=== PATIENT | male | born 1940 | race Caucasian/White ===

== ENCOUNTER 2018-06-07 05:58 | Inpatient (IN) | payer MEDICARE, BC ==
[2018-06-07] MEDS ORDERED: LACTATED RINGER'S 1,000 ML IV* ×2 (06:30)
[2018-06-07] MEDS: CEFAZOLIN 2 GM/50 ML (PMX) 50 ML IVPB (06:57)
[2018-06-07] MEDS ORDERED: MEPERIDINE 100 MG INJ (06:58)
[2018-06-07] MEDS ORDERED: GLYCOPYRROLATE 0.4 MG INJ ×3 (06:58→10:09)
[2018-06-07] MEDS ORDERED: SUCCINYLCHOLINE CHLORIDE 100 MG/5 ML SYG IV (06:58)
[2018-06-07] MEDS ORDERED: ROCURONIUM 50 MG INJ ×2 (06:58→07:00)
[2018-06-07] MEDS ORDERED: LIDOCAINE 2% (SDV) 5 ML INJ (06:58)
[2018-06-07] MEDS ORDERED: PROPOFOL 20 ML (06:58)
[2018-06-07] MEDS ORDERED: NEOSTIGMINE 3 MG/3 ML SYRINGE ×2 (06:58→10:09)
[2018-06-07] MEDS ORDERED: THROMBIN 5000 UNIT VIAL (07:06)
[2018-06-07] MEDS ORDERED: GELATIN SIZE 100 SPONGE (07:07)
[2018-06-07] MEDS: BUPIVACAINE 0.25% (MPF) 30 ML INJ (08:40)
[2018-06-07] MEDS: POLYMYXIN/BACITRACIN 1L IRRIG (08:40)
[2018-06-07] MEDS ORDERED: ONDANSETRON 4 MG INJ (10:11)
[2018-06-07] MEDS ORDERED: ONDANSETRON 4 MG INJ IV ×2 (11:00→11:30)
[2018-06-07] MEDS ORDERED: PROCHLORPERAZINE 10 MG TAB PO (11:00)
[2018-06-07] MEDS ORDERED: DIAZEPAM 5 MG TAB PO (11:00)
[2018-06-07] MEDS ORDERED: DIPHENHYDRAMINE 50 MG CAP PO (11:00)
[2018-06-07] MEDS ORDERED: DIAZEPAM 5 MG/ML SYG IM (11:00)
[2018-06-07] MEDS ORDERED: NACL 0.9% 3 ML SYG IV (11:00)
[2018-06-07] MEDS ORDERED: CEPASTAT LOZENGE MT (11:00)
[2018-06-07] MEDS ORDERED: ZOLPIDEM 5 MG TAB PO (11:00)
[2018-06-07] MEDS ORDERED: TRIMETHOBENZAMIDE 100 MG/ML VIAL IM (11:00)
[2018-06-07] MEDS ORDERED: BETHANECHOL 25 MG TAB PO (11:00)
[2018-06-07] MEDS ORDERED: HYDROCODONE/APAP (5/325) TAB PO ×2 (11:00)
[2018-06-07] MEDS ORDERED: NALOXONE (0.4 MG/ML) INJ IV (11:00)
[2018-06-07] MEDS ORDERED: HYDROmorphONE 0.2 MG/ML PCA IV (11:00)
[2018-06-07] MEDS ORDERED: HYDROmorphONE 0.2 MG/ML PCA (11:19)
[2018-06-07] MEDS ORDERED: EPHEDrine SULFATE 50 MG/5 ML SYG IV (11:30)
[2018-06-07] MEDS ORDERED: HYDROmorphONE 1 MG/5 ML IV SYRINGE IV ×2 (11:30)
[2018-06-07] MEDS ORDERED: MIDAZOLAM 1 MG/ML 2 ML INJ IV (11:30)
[2018-06-07] MEDS ORDERED: FENTAnyl 50 MCG/ML VIAL IV ×3 (11:30)
[2018-06-07] MEDS ORDERED: LABETALOL HCL 20MG INJ IV (11:30)
[2018-06-07] MEDS ORDERED: METOCLOPRAMIDE 10 MG INJ IV (11:30)
[2018-06-07] MEDS ORDERED: hydrALAzine 20 MG INJ IV (11:30)
[2018-06-07] MEDS ORDERED: DIPHENHYDRAMINE 50 MG INJ IV (11:30)
[2018-06-07] MEDS: MEPERIDINE 25 MG INJ IV (11:31)
[2018-06-07] MEDS: HYDROmorphONE 1 MG/5 ML IV SYRINGE IV ×2 (11:44→11:59)
[2018-06-07] MEDS: CEFAZOLIN 1 GM/50 ML (PMX) 50 ML IVPB ×3 (12:05→23:57)
[2018-06-07] MEDS ORDERED: TADALAFIL PO (13:00)
[2018-06-07] MEDS: DEXTROSE 5%-0.45% NACL 1,000 ML IV ×2 (16:12→20:16)
[2018-06-07] MEDS: PANTOPRAZOLE (EC) 40 MG TAB PO (18:28)
[2018-06-07] MEDS: DOCUSATE SODIUM 100 MG CAP PO (20:29)
[2018-06-07] MEDS: ATORVASTATIN 20 MG TAB PO (20:29)
[2018-06-07] MEDS: RANITIDINE 150 MG TAB PO (20:29)
[2018-06-07] MEDS ORDERED: GLUCOSAMINE SULFATE 1500 MG PO (21:00)
[2018-06-08] MEDS: DEXTROSE 5%-0.45% NACL 1,000 ML IV (03:22)
[2018-06-08 05:15] LABS: HEMATOCRIT 35.9 % (42.0-52.0); HEMOGLOBIN 12.1 g/dl (14.0-18.0)
[2018-06-08 05:32] LABS: ANION GAP 9 (8-16); BLOOD UREA NITROGEN 11 mg/dl (7-20); CALCIUM 8.3 mg/dl (8.4-10.2); CARBON DIOXIDE 27 mmol/L (21-31); CHLORIDE 106 mmol/L (97-110); CREATININE 0.74 mg/dl (0.61-1.24); GLUCOSE 120 mg/dl (70-220); POTASSIUM 3.7 mmol/L (3.5-5.1); SODIUM 138 mmol/L (135-144)
[2018-06-08] MEDS: PANTOPRAZOLE (EC) 40 MG TAB PO ×2 (05:46→18:01)
[2018-06-08] MEDS: CEFAZOLIN 1 GM/50 ML (PMX) 50 ML IVPB (05:46)
[2018-06-08] MEDS ORDERED: HYDROCODONE/APAP (5/325) TAB PO (08:30)
[2018-06-08] MEDS: BETHANECHOL 25 MG TAB PO (08:52)
[2018-06-08] MEDS: DOCUSATE SODIUM 100 MG CAP PO ×2 (08:52→21:03)
[2018-06-08] MEDS: FERROUS SULFATE (EC) 325 MG TAB PO ×3 (08:52→21:03)
[2018-06-08] MEDS: TAMSULOSIN (SR) 0.4 MG CAP PO (08:52)
[2018-06-08] MEDS: ASCORBIC ACID 500 MG TAB PO ×2 (08:52→21:03)
[2018-06-08] MEDS: RANITIDINE 150 MG TAB PO ×2 (08:52→21:03)
[2018-06-08] MEDS: SOLIFENACIN 5 MG TAB PO (08:52)
[2018-06-08] MEDS ORDERED: RESVERATROL 500 MG PO (09:00)
[2018-06-08] MEDS ORDERED: DOCUSATE SODIUM 100 MG CAP PO (09:00)
[2018-06-08 09:40] LABS: ADD UMIC YES; UR ASCORBIC ACID NEGATIVE (NEGATIVE); UR BILIRUBIN (Dip) NEGATIVE (NEGATIVE); UR BLOOD (Dip) 1+ mg/dL (NEGATIVE); UR CLARITY CLEAR (CLEAR); UR COLOR STRAW (YELLOW); UR GLUCOSE (Dip) NEGATIVE (NEGATIVE); UR KETONES (Dip) NEGATIVE (NEGATIVE); UR LEUKOCYTE ESTERASE (Dip) NEGATIVE Leu/ul (NEGATIVE); UR NITRITE (Dip) NEGATIVE (NEGATIVE); UR RBC 2 /HPF (0-5); UR SPECIFIC GRAVITY (Dip) 1.006 (1.003-1.030); UR TOTAL PROTEIN (Dip) NEGATIVE (NEGATIVE); UR UROBILINOGEN (Dip) NEGATIVE (NEGATIVE); UR WBC 0 /HPF (0-5)
[2018-06-08] MEDS: FLUTICASONE 0.05% 16 GM NAS SPRAY NASAL (10:53)
[2018-06-08] MEDS: HYDROCODONE/APAP (5/325) TAB PO (10:57)
[2018-06-08] MEDS: ATORVASTATIN 20 MG TAB PO (21:03)
[2018-06-09] MEDS: HYDROCODONE/APAP (5/325) TAB PO ×2 (00:22→18:05)
[2018-06-09] MEDS: PANTOPRAZOLE (EC) 40 MG TAB PO ×2 (06:17→18:00)
[2018-06-09] MEDS: FLUTICASONE 0.05% 16 GM NAS SPRAY NASAL (08:35)
[2018-06-09] MEDS: SOLIFENACIN 5 MG TAB PO (08:36)
[2018-06-09] MEDS: ASCORBIC ACID 500 MG TAB PO ×2 (08:36→21:08)
[2018-06-09] MEDS: RANITIDINE 150 MG TAB PO ×2 (08:36→21:08)
[2018-06-09] MEDS: TAMSULOSIN (SR) 0.4 MG CAP PO (08:37)
[2018-06-09] MEDS: FERROUS SULFATE (EC) 325 MG TAB PO ×3 (08:38→21:08)
[2018-06-09] MEDS: DOCUSATE SODIUM 100 MG CAP PO ×2 (08:38→21:08)
[2018-06-09] MEDS: ATORVASTATIN 20 MG TAB PO (21:08)
[2018-06-10] MEDS: ACETAMINOPHEN 325 MG TAB PO ×4 (00:10→21:22)
[2018-06-10] MEDS: PANTOPRAZOLE (EC) 40 MG TAB PO ×2 (05:15→18:59)
[2018-06-10] MEDS: FLUTICASONE 0.05% 16 GM NAS SPRAY NASAL (09:00)
[2018-06-10] MEDS: SOLIFENACIN 5 MG TAB PO (09:13)
[2018-06-10] MEDS: RANITIDINE 150 MG TAB PO ×2 (09:14→20:52)
[2018-06-10] MEDS: FERROUS SULFATE (EC) 325 MG TAB PO ×3 (09:14→20:52)
[2018-06-10] MEDS: DOCUSATE SODIUM 100 MG CAP PO ×2 (09:14→20:51)
[2018-06-10] MEDS: ASCORBIC ACID 500 MG TAB PO ×2 (09:14→20:51)
[2018-06-10] MEDS: TAMSULOSIN (SR) 0.4 MG CAP PO (09:14)
[2018-06-10] MEDS: AL HYDROX/MG HYDROX/SIMETH 30 ML CUP PO (11:11)
[2018-06-10] MEDS: HYDROCODONE/APAP (5/325) TAB PO (11:30)
[2018-06-10] MEDS: ATORVASTATIN 20 MG TAB PO (20:52)
[2018-06-11] MEDS: ACETAMINOPHEN 325 MG TAB PO ×4 (01:48→17:53)
[2018-06-11] MEDS: PANTOPRAZOLE (EC) 40 MG TAB PO ×2 (05:38→17:54)
[2018-06-11] MEDS: RANITIDINE 150 MG TAB PO (08:31)
[2018-06-11] MEDS: TAMSULOSIN (SR) 0.4 MG CAP PO (08:31)
[2018-06-11] MEDS: FERROUS SULFATE (EC) 325 MG TAB PO ×2 (08:31→13:30)
[2018-06-11] MEDS: SOLIFENACIN 5 MG TAB PO (08:31)
[2018-06-11] MEDS: DOCUSATE SODIUM 100 MG CAP PO (08:31)
[2018-06-11] MEDS: ASCORBIC ACID 500 MG TAB PO (08:32)
[2018-06-11] MEDS ORDERED: NA PHOSPHATE/BIPHOS 133 ML ENEMA PR ×2 (10:30)
[2018-06-11] MEDS: FLUTICASONE 0.05% 16 GM NAS SPRAY NASAL (10:50)
[2018-06-11] MEDS: BISACODYL 10 MG SUPP PR (10:50)
[2018-06-11] MEDS: AL HYDROX/MG HYDROX/SIMETH 30 ML CUP PO (11:01)
== END 2018-06-11 18:55 | DRG 516 ==
LOC: REC 05:58 → MS1 06-08 18:20 → ICU 14:30
PROC: 01NB0ZZ Release Lumbar Nerve, Open Approach (ICD-10-PCS; principal; 2018-06-07 07:00)
PROC: 4A11X4G Monitoring of Peripheral Nervous Electrical Activity, Intraoperative, External Approach (ICD-10-PCS; 2018-06-07 07:00)
DX: M48.061 Spinal stenosis, lumbar region without neurogenic claudication (principal); M54.16 Radiculopathy, lumbar region; M54.42 Lumbago with sciatica, left side; R25.2 Cramp and spasm; E66.01 Morbid (severe) obesity due to excess calories; M53.86 Other specified dorsopathies, lumbar region; K21.9 Gastro-esophageal reflux disease without esophagitis; Z68.39 Body mass index [BMI] 39.0-39.9, adult; E78.5 Hyperlipidemia, unspecified; G47.33 Obstructive sleep apnea (adult) (pediatric); N40.1 Benign prostatic hyperplasia with lower urinary tract symptoms; N13.8 Other obstructive and reflux uropathy
CPT/HCPCS: 72020; 80048; 81001; 85014; 85018; 86850; 86900; 86901; 86920; 87086; 88304; 88311; 97110; 97116; 97162; 97165; 97530; 97535

== ENCOUNTER 2018-06-11 19:59 | Inpatient (IN) | payer MEDICARE, BC ==
[2018-06-11] MEDS ORDERED: HYDROCODONE/APAP (5/325) TAB PO (21:00)
[2018-06-11] MEDS ORDERED: ONDANSETRON 4 MG INJ IV (21:00)
[2018-06-11] MEDS ORDERED: PROCHLORPERAZINE 10 MG TAB PO (21:00)
[2018-06-11] MEDS ORDERED: NACL 0.9% 3 ML SYG IV (21:00)
[2018-06-11] MEDS ORDERED: TRIMETHOBENZAMIDE 100 MG/ML VIAL IM (21:00)
[2018-06-11] MEDS ORDERED: BETHANECHOL 25 MG TAB PO (21:00)
[2018-06-11] MEDS ORDERED: CEPASTAT LOZENGE MT (21:00)
[2018-06-11] MEDS ORDERED: AL HYDROX/MG HYDROX/SIMETH 30 ML CUP PO (21:00)
[2018-06-11] MEDS: DOCUSATE SODIUM 100 MG CAP PO (21:12)
[2018-06-11] MEDS: FERROUS SULFATE (EC) 325 MG TAB PO (21:13)
[2018-06-11] MEDS: ASCORBIC ACID 500 MG TAB PO (21:13)
[2018-06-11] MEDS: ATORVASTATIN 20 MG TAB PO (21:13)
[2018-06-11] MEDS: RANITIDINE 150 MG TAB PO (21:13)
[2018-06-11 22:27] LABS: ADD UMIC NO; UR ASCORBIC ACID 40 mg/dL (NEGATIVE); UR BILIRUBIN (Dip) NEGATIVE (NEGATIVE); UR BLOOD (Dip) NEGATIVE (NEGATIVE); UR CLARITY CLEAR (CLEAR); UR COLOR YELLOW (YELLOW); UR GLUCOSE (Dip) NEGATIVE (NEGATIVE); UR KETONES (Dip) NEGATIVE (NEGATIVE); UR LEUKOCYTE ESTERASE (Dip) NEGATIVE Leu/ul (NEGATIVE); UR NITRITE (Dip) NEGATIVE (NEGATIVE); UR SPECIFIC GRAVITY (Dip) 1.021 (1.003-1.030); UR TOTAL PROTEIN (Dip) NEGATIVE (NEGATIVE); UR UROBILINOGEN (Dip) 1+ mg/dL (NEGATIVE)
[2018-06-12 06:48] LABS: ADD MAN DIFF? NO
[2018-06-12 06:50] LABS: WHITE BLOOD COUNT 8.6 10^3/ul (4.8-10.8)
[2018-06-12 06:50] LABS: BASOPHILS % 0.4 % (0.0-2.0); EOSINOPHILS # 0.2 10^3/ul (0.0-0.5); EOSINOPHILS % 1.8 % (0.0-7.0); HEMATOCRIT 37.8 % (42.0-52.0); HEMOGLOBIN 12.8 g/dl (14.0-18.0); LYMPHOCYTES # 1.2 10^3/ul (0.8-2.9); MEAN CORPUSCULAR HEMOGLOBIN 31.7 pg (29.0-33.0); MEAN CORPUSCULAR HGB CONC 33.9 g/dl (32.0-37.0); MEAN CORPUSCULAR VOLUME 93.6 fl (82.0-101.0); MEAN PLATELET VOLUME 11.9 fl (7.4-10.4); MONOCYTE # 1.1 10^3/ul (0.3-0.9); MONOCYTES % 12.7 % (0.0-11.0); NEUTROPHIL # 6.1 10^3/ul (1.6-7.5); NEUTROPHILS % 70.7 % (39.0-77.0); PLATELET COUNT 194 10^3/UL (140-415); RED BLOOD COUNT 4.04 10^6/ul (4.70-6.10); RED CELL DISTRIBUTION WIDTH 14.6 % (11.5-14.5)
[2018-06-12] MEDS: PANTOPRAZOLE (EC) 40 MG TAB PO ×2 (07:02→18:22)
[2018-06-12 07:10] LABS: ALANINE AMINOTRANSFERASE 292 IU/L (13-69); ALBUMIN 3.1 g/dl (3.3-4.9); ALBUMIN/GLOBULIN RATIO 1.14; ALKALINE PHOSPHATASE 69 IU/L (42-121); ANION GAP 10 (8-16); ASPARTATE AMINO TRANSFERASE 234 IU/L (15-46); BILIRUBIN,INDIRECT 0.8 mg/dl (0-1.1); BILIRUBIN,TOTAL 0.8 mg/dl (0.2-1.3); BLOOD UREA NITROGEN 18 mg/dl (7-20); CALCIUM 8.5 mg/dl (8.4-10.2); CARBON DIOXIDE 27 mmol/L (21-31); CHLORIDE 106 mmol/L (97-110); CREATININE 0.77 mg/dl (0.61-1.24); GLUCOSE 114 mg/dl (70-220); POTASSIUM 3.4 mmol/L (3.5-5.1); SODIUM 140 mmol/L (135-144); TOTAL PROTEIN 5.8 g/dl (6.1-8.1)
[2018-06-12] MEDS: ACETAMINOPHEN 325 MG TAB PO ×3 (07:55→19:26)
[2018-06-12] MEDS: FERROUS SULFATE (EC) 325 MG TAB PO ×3 (10:42→21:19)
[2018-06-12] MEDS: RANITIDINE 150 MG TAB PO ×2 (10:42→21:19)
[2018-06-12] MEDS: DOCUSATE SODIUM 100 MG CAP PO ×2 (10:42→21:19)
[2018-06-12] MEDS: ASCORBIC ACID 500 MG TAB PO ×2 (10:42→21:19)
[2018-06-12] MEDS: FLUTICASONE 0.05% 16 GM NAS SPRAY NASAL (10:42)
[2018-06-12] MEDS: SOLIFENACIN 5 MG TAB PO (10:42)
[2018-06-12] MEDS: TAMSULOSIN (SR) 0.4 MG CAP PO (10:42)
[2018-06-12] MEDS: POTASSIUM CHLORIDE (SR) 20 MEQ TAB PO (10:43)
[2018-06-12] MEDS: BACLOFEN 10 MG TAB PO ×2 (14:41→21:19)
[2018-06-12] MEDS: SENNA TAB PO (21:19)
[2018-06-12] MEDS: ATORVASTATIN 20 MG TAB PO (21:19)
[2018-06-13] MEDS: PANTOPRAZOLE (EC) 40 MG TAB PO ×2 (06:35→17:45)
[2018-06-13 07:10] LABS: ADD MAN DIFF? NO; BASOPHILS % 0.4 % (0.0-2.0); EOSINOPHILS # 0.3 10^3/ul (0.0-0.5); EOSINOPHILS % 2.9 % (0.0-7.0); HEMOGLOBIN 12.8 g/dl (14.0-18.0); LYMPHOCYTES # 1.4 10^3/ul (0.8-2.9); LYMPHOCYTES % 16.4 % (15.0-51.0); MEAN CORPUSCULAR HEMOGLOBIN 31.3 pg (29.0-33.0); MEAN CORPUSCULAR HGB CONC 32.8 g/dl (32.0-37.0); MEAN CORPUSCULAR VOLUME 95.4 fl (82.0-101.0); MEAN PLATELET VOLUME 12.2 fl (7.4-10.4); MONOCYTES % 11.9 % (0.0-11.0); NEUTROPHIL # 5.8 10^3/ul (1.6-7.5); NEUTROPHILS % 67.8 % (39.0-77.0); PLATELET COUNT 185 10^3/UL (140-415); RED BLOOD COUNT 4.09 10^6/ul (4.70-6.10); RED CELL DISTRIBUTION WIDTH 14.6 % (11.5-14.5)
[2018-06-13 07:10] LABS: WHITE BLOOD COUNT 8.6 10^3/ul (4.8-10.8)
[2018-06-13 07:14] LABS: HAAIG REFLEX REFLEX FILED
[2018-06-13 08:07] LABS: ALANINE AMINOTRANSFERASE 314 IU/L (13-69); ALKALINE PHOSPHATASE 68 IU/L (42-121); ANION GAP 11 (8-16); ASPARTATE AMINO TRANSFERASE 157 IU/L (15-46); BILIRUBIN,INDIRECT 0.6 mg/dl (0-1.1); BILIRUBIN,TOTAL 0.6 mg/dl (0.2-1.3); BLOOD UREA NITROGEN 18 mg/dl (7-20); CALCIUM 8.8 mg/dl (8.4-10.2); CARBON DIOXIDE 24 mmol/L (21-31); CHLORIDE 108 mmol/L (97-110); GLUCOSE 107 mg/dl (70-220); SODIUM 139 mmol/L (135-144)
[2018-06-13 08:22] LABS: HEPATITIS B SURFACE ANTIGEN NEGATIVE (NEGATIVE)
[2018-06-13 08:40] LABS: HEPATITIS B CORE ANTIBODY NEGATIVE (NEGATIVE); HEPATITIS C VIRAL ANTIBODY NEGATIVE (NEGATIVE)
[2018-06-13] MEDS: ASCORBIC ACID 500 MG TAB PO ×2 (08:50→21:07)
[2018-06-13] MEDS: TAMSULOSIN (SR) 0.4 MG CAP PO (08:50)
[2018-06-13] MEDS: RANITIDINE 150 MG TAB PO ×2 (08:50→21:07)
[2018-06-13] MEDS: ACETAMINOPHEN 325 MG TAB PO ×2 (08:50→15:28)
[2018-06-13] MEDS: FLUTICASONE 0.05% 16 GM NAS SPRAY NASAL (08:50)
[2018-06-13] MEDS: BACLOFEN 10 MG TAB PO ×2 (08:50→21:07)
[2018-06-13] MEDS: FERROUS SULFATE (EC) 325 MG TAB PO ×3 (08:50→21:07)
[2018-06-13] MEDS: DOCUSATE SODIUM 100 MG CAP PO ×2 (08:50→21:07)
[2018-06-13] MEDS: SOLIFENACIN 5 MG TAB PO (08:50)
[2018-06-13] MEDS: SENNA TAB PO (21:00)
[2018-06-13] MEDS: NITROFURANTOIN (SR) 100 MG CAP PO (21:07)
[2018-06-13] MEDS: ATORVASTATIN 20 MG TAB PO (21:07)
[2018-06-14] MEDS: PANTOPRAZOLE (EC) 40 MG TAB PO ×2 (06:06→17:49)
[2018-06-14] MEDS: ACETAMINOPHEN 325 MG TAB PO ×2 (07:56→20:58)
[2018-06-14 07:59] LABS: ALANINE AMINOTRANSFERASE 241 IU/L (13-69); ALBUMIN 3.1 g/dl (3.3-4.9); ALBUMIN/GLOBULIN RATIO 1.03; ALKALINE PHOSPHATASE 75 IU/L (42-121); ANION GAP 10 (8-16); ASPARTATE AMINO TRANSFERASE 86 IU/L (15-46); BILIRUBIN,INDIRECT 0.6 mg/dl (0-1.1); BILIRUBIN,TOTAL 0.6 mg/dl (0.2-1.3); BLOOD UREA NITROGEN 17 mg/dl (7-20); CALCIUM 8.9 mg/dl (8.4-10.2); CARBON DIOXIDE 26 mmol/L (21-31); CHLORIDE 107 mmol/L (97-110); CREATININE 0.83 mg/dl (0.61-1.24); GLUCOSE 102 mg/dl (70-220); SODIUM 139 mmol/L (135-144); TOTAL PROTEIN 6.1 g/dl (6.1-8.1)
[2018-06-14] MEDS: DOCUSATE SODIUM 100 MG CAP PO ×3 (09:00→20:55)
[2018-06-14] MEDS: FLUTICASONE 0.05% 16 GM NAS SPRAY NASAL ×2 (09:00→11:50)
[2018-06-14] MEDS: NITROFURANTOIN (SR) 100 MG CAP PO ×2 (11:51→20:55)
[2018-06-14] MEDS: ASCORBIC ACID 500 MG TAB PO ×2 (11:51→20:55)
[2018-06-14] MEDS: BACLOFEN 10 MG TAB PO ×2 (11:51→20:55)
[2018-06-14] MEDS: FERROUS SULFATE (EC) 325 MG TAB PO ×3 (11:51→20:55)
[2018-06-14] MEDS: TAMSULOSIN (SR) 0.4 MG CAP PO (11:51)
[2018-06-14] MEDS: SOLIFENACIN 5 MG TAB PO (11:56)
[2018-06-14] MEDS: RANITIDINE 150 MG TAB PO ×2 (11:56→20:54)
[2018-06-14] MEDS: SENNA TAB PO (20:55)
[2018-06-14] MEDS: ATORVASTATIN 20 MG TAB PO (20:55)
[2018-06-15] MEDS: PANTOPRAZOLE (EC) 40 MG TAB PO ×2 (06:22→18:16)
[2018-06-15] MEDS: FLUTICASONE 0.05% 16 GM NAS SPRAY NASAL (09:00)
[2018-06-15] MEDS: ACETAMINOPHEN 325 MG TAB PO ×2 (09:36→20:57)
[2018-06-15] MEDS: BACLOFEN 10 MG TAB PO ×2 (09:36→20:56)
[2018-06-15] MEDS: DOCUSATE SODIUM 100 MG CAP PO ×2 (09:36→20:57)
[2018-06-15] MEDS: TAMSULOSIN (SR) 0.4 MG CAP PO (09:36)
[2018-06-15] MEDS: SOLIFENACIN 5 MG TAB PO (09:37)
[2018-06-15] MEDS: ASCORBIC ACID 500 MG TAB PO ×2 (09:37→20:57)
[2018-06-15] MEDS: RANITIDINE 150 MG TAB PO ×2 (09:37→20:57)
[2018-06-15] MEDS: FERROUS SULFATE (EC) 325 MG TAB PO ×3 (09:37→20:58)
[2018-06-15] MEDS: NITROFURANTOIN (SR) 100 MG CAP PO ×2 (09:37→20:57)
[2018-06-15] MEDS: MAGNESIUM HYDROXIDE 30ML CUP PO (10:06)
[2018-06-15] MEDS: CIPROFLOXACIN 500 MG TAB PO (19:34)
[2018-06-15] MEDS: ATORVASTATIN 20 MG TAB PO (20:57)
[2018-06-15] MEDS: SENNA TAB PO (20:57)
[2018-06-16] MEDS: PANTOPRAZOLE (EC) 40 MG TAB PO ×2 (06:49→17:40)
[2018-06-16] MEDS: CIPROFLOXACIN 500 MG TAB PO ×2 (06:49→17:40)
[2018-06-16 07:18] LABS: ALANINE AMINOTRANSFERASE 137 IU/L (13-69); ALBUMIN 3.1 g/dl (3.3-4.9); ALKALINE PHOSPHATASE 81 IU/L (42-121); ASPARTATE AMINO TRANSFERASE 35 IU/L (15-46); BILIRUBIN,INDIRECT 0.8 mg/dl (0-1.1); BILIRUBIN,TOTAL 0.8 mg/dl (0.2-1.3); TOTAL PROTEIN 5.5 g/dl (6.1-8.1)
[2018-06-16] MEDS: SOLIFENACIN 5 MG TAB PO (10:18)
[2018-06-16] MEDS: FERROUS SULFATE (EC) 325 MG TAB PO ×3 (10:18→20:26)
[2018-06-16] MEDS: RANITIDINE 150 MG TAB PO ×2 (10:18→20:27)
[2018-06-16] MEDS: DOCUSATE SODIUM 100 MG CAP PO ×2 (10:18→20:26)
[2018-06-16] MEDS: NITROFURANTOIN (SR) 100 MG CAP PO (10:18)
[2018-06-16] MEDS: TAMSULOSIN (SR) 0.4 MG CAP PO (10:19)
[2018-06-16] MEDS: BACLOFEN 10 MG TAB PO ×2 (10:19→20:26)
[2018-06-16] MEDS: ASCORBIC ACID 500 MG TAB PO ×2 (10:21→20:26)
[2018-06-16] MEDS: FLUTICASONE 0.05% 16 GM NAS SPRAY NASAL (10:25)
[2018-06-16] MEDS: LACTULOSE 30ML CUP PO (14:27)
[2018-06-16] MEDS: SENNA TAB PO (20:26)
[2018-06-16] MEDS: ATORVASTATIN 20 MG TAB PO (20:26)
[2018-06-16] MEDS: MAGNESIUM HYDROXIDE 30ML CUP PO (20:58)
[2018-06-17] MEDS: CIPROFLOXACIN 500 MG TAB PO ×2 (06:19→18:24)
[2018-06-17] MEDS: PANTOPRAZOLE (EC) 40 MG TAB PO ×2 (06:19→18:24)
[2018-06-17] MEDS: BACLOFEN 10 MG TAB PO ×2 (08:50→20:51)
[2018-06-17] MEDS: DOCUSATE SODIUM 100 MG CAP PO ×2 (08:50→20:53)
[2018-06-17] MEDS: SOLIFENACIN 5 MG TAB PO (08:50)
[2018-06-17] MEDS: FLUTICASONE 0.05% 16 GM NAS SPRAY NASAL ×2 (08:50→20:50)
[2018-06-17] MEDS: FERROUS SULFATE (EC) 325 MG TAB PO ×3 (08:50→20:51)
[2018-06-17] MEDS: TAMSULOSIN (SR) 0.4 MG CAP PO (08:51)
[2018-06-17] MEDS: ASCORBIC ACID 500 MG TAB PO ×2 (08:51→20:51)
[2018-06-17] MEDS: RANITIDINE 150 MG TAB PO ×2 (08:51→20:51)
[2018-06-17] MEDS: BISACODYL 10 MG SUPP PR (08:51)
[2018-06-17] MEDS: ATORVASTATIN 20 MG TAB PO (20:51)
[2018-06-17] MEDS: SENNA TAB PO (20:53)
[2018-06-18] MEDS: CIPROFLOXACIN 500 MG TAB PO ×2 (06:33→17:44)
[2018-06-18] MEDS: PANTOPRAZOLE (EC) 40 MG TAB PO ×2 (06:33→17:46)
[2018-06-18] MEDS: DOCUSATE SODIUM 100 MG CAP PO ×2 (08:52→20:40)
[2018-06-18] MEDS: FERROUS SULFATE (EC) 325 MG TAB PO ×3 (08:52→20:39)
[2018-06-18] MEDS: RANITIDINE 150 MG TAB PO ×2 (08:52→20:40)
[2018-06-18] MEDS: SOLIFENACIN 5 MG TAB PO (08:52)
[2018-06-18] MEDS: TAMSULOSIN (SR) 0.4 MG CAP PO (08:52)
[2018-06-18] MEDS: BACLOFEN 10 MG TAB PO ×2 (08:52→20:39)
[2018-06-18] MEDS: ASCORBIC ACID 500 MG TAB PO ×2 (08:52→20:39)
[2018-06-18] MEDS: ATORVASTATIN 20 MG TAB PO (20:39)
[2018-06-18] MEDS: FLUTICASONE 0.05% 16 GM NAS SPRAY NASAL (20:40)
[2018-06-18] MEDS: SENNA TAB PO (20:40)
[2018-06-19] MEDS: CIPROFLOXACIN 500 MG TAB PO ×2 (06:04→17:22)
[2018-06-19] MEDS: PANTOPRAZOLE (EC) 40 MG TAB PO ×2 (06:04→17:22)
[2018-06-19] MEDS: RANITIDINE 150 MG TAB PO ×2 (08:27→21:30)
[2018-06-19] MEDS: FERROUS SULFATE (EC) 325 MG TAB PO ×3 (08:27→21:30)
[2018-06-19] MEDS: BACLOFEN 10 MG TAB PO ×2 (08:27→21:30)
[2018-06-19] MEDS: SOLIFENACIN 5 MG TAB PO (08:27)
[2018-06-19] MEDS: TAMSULOSIN (SR) 0.4 MG CAP PO (08:27)
[2018-06-19] MEDS: ASCORBIC ACID 500 MG TAB PO ×2 (08:27→21:30)
[2018-06-19] MEDS: DOCUSATE SODIUM 100 MG CAP PO ×2 (08:28→21:30)
[2018-06-19] MEDS: FLUTICASONE 0.05% 16 GM NAS SPRAY NASAL (21:30)
[2018-06-19] MEDS: ATORVASTATIN 20 MG TAB PO (21:30)
[2018-06-19] MEDS: SENNA TAB PO (21:37)
[2018-06-20] MEDS: CIPROFLOXACIN 500 MG TAB PO ×2 (06:30→17:25)
[2018-06-20] MEDS: MAGNESIUM HYDROXIDE 30ML CUP PO (06:30)
[2018-06-20] MEDS: PANTOPRAZOLE (EC) 40 MG TAB PO ×2 (06:30→17:25)
[2018-06-20] MEDS: SOLIFENACIN 5 MG TAB PO (08:53)
[2018-06-20] MEDS: ASCORBIC ACID 500 MG TAB PO ×2 (08:53→21:05)
[2018-06-20] MEDS: RANITIDINE 150 MG TAB PO ×2 (08:53→21:05)
[2018-06-20] MEDS: BACLOFEN 10 MG TAB PO ×2 (08:54→21:05)
[2018-06-20] MEDS: TAMSULOSIN (SR) 0.4 MG CAP PO (08:54)
[2018-06-20] MEDS: FERROUS SULFATE (EC) 325 MG TAB PO ×3 (08:54→21:05)
[2018-06-20] MEDS: DOCUSATE SODIUM 100 MG CAP PO ×2 (08:54→21:05)
[2018-06-20] MEDS: LACTULOSE 30ML CUP PO (12:12)
[2018-06-20] MEDS: SENNA TAB PO (21:00)
[2018-06-20] MEDS: ATORVASTATIN 20 MG TAB PO (21:05)
[2018-06-20] MEDS: FLUTICASONE 0.05% 16 GM NAS SPRAY NASAL (21:05)
[2018-06-20] MEDS: DIPHENHYDRAMINE 50 MG CAP PO (21:08)
[2018-06-21] MEDS: CIPROFLOXACIN 500 MG TAB PO ×2 (06:04→17:42)
[2018-06-21] MEDS: PANTOPRAZOLE (EC) 40 MG TAB PO ×2 (06:04→17:42)
[2018-06-21 08:02] LABS: ALANINE AMINOTRANSFERASE 56 IU/L (13-69); ALBUMIN 3.1 g/dl (3.3-4.9); ALKALINE PHOSPHATASE 88 IU/L (42-121); ASPARTATE AMINO TRANSFERASE 22 IU/L (15-46); BILIRUBIN,INDIRECT 0.5 mg/dl (0-1.1); BILIRUBIN,TOTAL 0.5 mg/dl (0.2-1.3)
[2018-06-21] MEDS: DOCUSATE SODIUM 100 MG CAP PO ×2 (08:20→21:11)
[2018-06-21] MEDS: BACLOFEN 10 MG TAB PO ×2 (08:20→21:11)
[2018-06-21] MEDS: ASCORBIC ACID 500 MG TAB PO ×2 (08:20→21:12)
[2018-06-21] MEDS: FERROUS SULFATE (EC) 325 MG TAB PO ×3 (08:20→21:11)
[2018-06-21] MEDS: RANITIDINE 150 MG TAB PO ×2 (08:20→21:11)
[2018-06-21] MEDS: SOLIFENACIN 5 MG TAB PO (08:21)
[2018-06-21] MEDS: TAMSULOSIN (SR) 0.4 MG CAP PO (08:21)
[2018-06-21] MEDS: SENNA TAB PO (21:00)
[2018-06-21] MEDS: ATORVASTATIN 20 MG TAB PO (21:11)
[2018-06-21] MEDS: FLUTICASONE 0.05% 16 GM NAS SPRAY NASAL (21:12)
[2018-06-22] MEDS: PANTOPRAZOLE (EC) 40 MG TAB PO ×2 (06:10→17:34)
[2018-06-22] MEDS: CIPROFLOXACIN 500 MG TAB PO ×2 (06:10→17:34)
[2018-06-22] MEDS: BACLOFEN 10 MG TAB PO ×2 (08:32→21:33)
[2018-06-22] MEDS: FERROUS SULFATE (EC) 325 MG TAB PO ×3 (08:32→21:33)
[2018-06-22] MEDS: ASCORBIC ACID 500 MG TAB PO ×2 (08:32→21:33)
[2018-06-22] MEDS: SOLIFENACIN 5 MG TAB PO (08:32)
[2018-06-22] MEDS: DOCUSATE SODIUM 100 MG CAP PO ×2 (08:32→21:00)
[2018-06-22] MEDS: TAMSULOSIN (SR) 0.4 MG CAP PO (08:32)
[2018-06-22] MEDS: RANITIDINE 150 MG TAB PO ×2 (08:32→21:33)
[2018-06-22] MEDS: SENNA TAB PO (21:00)
[2018-06-22] MEDS: FLUTICASONE 0.05% 16 GM NAS SPRAY NASAL (21:31)
[2018-06-22] MEDS: ATORVASTATIN 20 MG TAB PO (21:33)
[2018-06-23] MEDS: PANTOPRAZOLE (EC) 40 MG TAB PO ×2 (06:35→17:53)
[2018-06-23] MEDS: CIPROFLOXACIN 500 MG TAB PO ×2 (06:35→17:50)
[2018-06-23] MEDS: SOLIFENACIN 5 MG TAB PO (08:44)
[2018-06-23] MEDS: FERROUS SULFATE (EC) 325 MG TAB PO ×3 (08:44→20:37)
[2018-06-23] MEDS: RANITIDINE 150 MG TAB PO ×2 (08:44→20:37)
[2018-06-23] MEDS: TAMSULOSIN (SR) 0.4 MG CAP PO (08:44)
[2018-06-23] MEDS: ASCORBIC ACID 500 MG TAB PO ×2 (08:44→20:37)
[2018-06-23] MEDS: TIZANIDINE 2 MG TAB PO (08:44)
[2018-06-23] MEDS: BACLOFEN 10 MG TAB PO ×2 (08:45→20:37)
[2018-06-23] MEDS: DOCUSATE SODIUM 100 MG CAP PO ×2 (08:45→20:36)
[2018-06-23] MEDS: SENNA TAB PO (20:37)
[2018-06-23] MEDS: ATORVASTATIN 20 MG TAB PO (20:37)
[2018-06-23] MEDS: FLUTICASONE 0.05% 16 GM NAS SPRAY NASAL (22:01)
[2018-06-24] MEDS: MAGNESIUM HYDROXIDE 30ML CUP PO (06:06)
[2018-06-24] MEDS: PANTOPRAZOLE (EC) 40 MG TAB PO ×2 (06:06→17:42)
[2018-06-24] MEDS: CIPROFLOXACIN 500 MG TAB PO ×2 (06:06→17:42)
[2018-06-24] MEDS: RANITIDINE 150 MG TAB PO ×2 (09:03→21:04)
[2018-06-24] MEDS: FERROUS SULFATE (EC) 325 MG TAB PO ×3 (09:03→21:04)
[2018-06-24] MEDS: TAMSULOSIN (SR) 0.4 MG CAP PO (09:03)
[2018-06-24] MEDS: SOLIFENACIN 5 MG TAB PO (09:03)
[2018-06-24] MEDS: BACLOFEN 10 MG TAB PO ×2 (09:03→21:04)
[2018-06-24] MEDS: DOCUSATE SODIUM 100 MG CAP PO ×2 (09:03→21:00)
[2018-06-24] MEDS: ASCORBIC ACID 500 MG TAB PO ×2 (09:03→21:04)
[2018-06-24] MEDS: ACETAMINOPHEN 325 MG TAB PO ×2 (10:36→21:04)
[2018-06-24] MEDS: SENNA TAB PO (21:00)
[2018-06-24] MEDS: ATORVASTATIN 20 MG TAB PO (21:04)
[2018-06-24] MEDS: FLUTICASONE 0.05% 16 GM NAS SPRAY NASAL (21:08)
[2018-06-25] MEDS: CIPROFLOXACIN 500 MG TAB PO (06:37)
[2018-06-25] MEDS: PANTOPRAZOLE (EC) 40 MG TAB PO (06:37)
[2018-06-25] MEDS: SOLIFENACIN 5 MG TAB PO (09:24)
[2018-06-25] MEDS: RANITIDINE 150 MG TAB PO (09:24)
[2018-06-25] MEDS: DOCUSATE SODIUM 100 MG CAP PO (09:25)
[2018-06-25] MEDS: ASCORBIC ACID 500 MG TAB PO (09:25)
[2018-06-25] MEDS: BACLOFEN 10 MG TAB PO (09:25)
[2018-06-25] MEDS: TAMSULOSIN (SR) 0.4 MG CAP PO (09:25)
[2018-06-25] MEDS: FERROUS SULFATE (EC) 325 MG TAB PO (09:25)
== END 2018-06-25 12:20 | disposition home health service (06) | DRG 552 ==
LOC: VRC 19:59
PROC: F07Z5ZZ Bed Mobility Treatment (ICD-10-PCS; principal; 2018-06-11)
PROC: F08Z2ZZ Grooming/Personal Hygiene Treatment (ICD-10-PCS; 2018-06-11)
DX: M48.061 Spinal stenosis, lumbar region without neurogenic claudication (principal); N39.0 Urinary tract infection, site not specified; E78.5 Hyperlipidemia, unspecified; K21.9 Gastro-esophageal reflux disease without esophagitis; N40.0 Benign prostatic hyperplasia without lower urinary tract symptoms; Z96.652 Presence of left artificial knee joint; J30.9 Allergic rhinitis, unspecified; K59.00 Constipation, unspecified; N39.41 Urge incontinence; M62.838 Other muscle spasm; E66.9 Obesity, unspecified; Z68.39 Body mass index [BMI] 39.0-39.9, adult
CPT/HCPCS: 80053; 80076; 81003; 85025; 86704; 86709; 86803; 87081; 87086; 87340; 97110; 97116; 97150; 97162; 97530; 97535; 97542